=== PATIENT | female | born 2000 | race Two or more races ===

== ENCOUNTER 2024-05-13 13:13 | Emergency (ER) | payer OTHER ==
[~2024-05-13] VITALS: Ht 162.6 cm; Wt 68.0 kg
[2024-05-13] MEDS ORDERED: KETOROLAC TROMETHAMINE 30 MG VIAL IM STA (15:09)
== END 2024-05-13 15:52 | disposition home or self-care (01) ==
LOC: ER 13:15
DX: M54.2 Cervicalgia (principal); R42 Dizziness and giddiness